=== PATIENT | male | born 1945 | race Caucasian/White ===

== ENCOUNTER 2016-07-27 14:13 | Emergency (ER) | payer OTHER ==
--- NOTE | 2016-07-27 15:38 | ER PHYSICIAN DOCUMENTATION ---
Physician Documentation [facility] Name:Eugene Bronson Age:70 yrs Sex:Male :1945 Arrival Date:07/27/2016 Time:14:13 Bed2 Private MD: Tomas Aguilera Disposition: 07/27 16:00 Chart complete. tl1 Disposition: 07/27/16 15:22 Discharged to Home/Self Care. Impression: Shingles. - Condition is Good. - Discharge Instructions: Valtrex - HERPES ZOSTER. - Prescriptions for gabapentin 300 mg Oral capsule - take 1 capsule by ORAL route 3 times per day; 30 capsule. [place] 5- 325 mg Oral Tablet - take 1 tablet by ORAL route every 6 hours As needed; 20 tablet. Valtrex 1 g Oral Tablet - take 1 tablet by ORAL route every 8 hours for 7 days; 21 tablet. - Medical Reconciliation form form. - Follow up: Private Physician; When: 4- 6 days; Reason: Recheck today's complaints, Continuance of care. - Problem is new. - Symptoms have improved. HPI: 14:58 This 70 yrs old Male presents to ER via Private Vehicle with complaints of tl1 Rash - R SIDE OF BODY. 15:00 The rash is located on the Right S1 dermatome. The rash can be described as vesicular, tl1 Shingles. Onset: The symptom(s)/episode began/occurred gradually, 7 day(s) ago. Associated signs and symptoms: Pertinent positives: burning sensation, Pain. Severity of symptoms: At their worst the symptoms were moderate in the emergency department the symptoms are unchanged. this is worse when he is sitting in the car and he has a long drive back to [place] tomorrow.. Historical: - Home Meds: 1. citalopram oral - PMHx: Asthma; - PSHx: Hip surgery; - Tetanus: unknown. - Ebola Screening: : Patient denies travel to an Ebola-affected area in the 21 days before illness onset. No symptoms or risks identified at this time. . - Immunization history: Flu Vaccine >1 year. - Social history: Smoking status: Patient states was never smoker of tobacco. ROS: 15:00 Skin: Positive for rash. tl1 15:00 All other systems are negative. Exam: 15:00 Constitutional: This is a well developed, well nourished patient who is awake, alert, tl1 and in no acute distress. 15:00 Cardiovascular: Rate: normal. 15:00 Respiratory: Respirations: normal. 15:00 Skin: zoster. Vital Signs: 14:30 BP 146 / 97; Pulse 88; Resp 16; Temp 97.9; Pulse Ox 92% on R/A; Weight 89.81 kg; Height 5 ft. 8 in. (172.72 cm); Pain 8/10; 14:30 Body Mass Index 30.11 (89.81 kg, 172.72 cm) MDM: 14:57 Patient medically screened. tl1 16:00 Differential diagnosis: Shingles. Data reviewed: vital signs, nurses notes, and as a tl1 result, I will discharge patient. Counseling: I had a detailed discussion with the patient and/or guardian regarding: the historical points, exam findings, and any diagnostic results supporting the discharge/admit diagnosis, the need for outpatient follow up, to return to the emergency department if symptoms worsen or persist or if there are any questions or concerns that arise at home. Special discussion: There is a small chance Valtrex will help at this point. Gabapentin may help with the pain, though maybe not immediately. He should take 300 mg today, 300 mg bid tomorrow, and 300 mg TID thereafter. Be careful about possible drowsiness and dizziness while driving.. Dispensed Medications: No medications were administered Signatures: Ca Ponce, DANNIE RN Tomas Anaya MD MD tl1 Trina Little
--- NOTE | 2016-07-27 15:38 | ER NURSING DOCUMENTATION ---
Nurse's Notes [facility] Name:Eugene Bronson Age:70 yrs Sex:Male :1945 Arrival Date:07/27/2016 Time:14:13 Bed2 Private MD: Diagnosis:Shingles Presentation: 07/27 14:21 Acuity: HAKEEM 4 rh 14:27 Presenting complaint: Patient states: RASH SINCE YESTERDAY TO RIGHT HIP TO RIGHT KNEE, lc THINKS ITS SHINGLES. NO VACCINE AND DID HAVE CHICKEN POX A CHILD. Transition of care: patient was not received from another setting of care. Onset: The symptoms/episode began/occurred gradually. Anaphylaxis evaluation, no signs or symptoms of anaphylaxis were noted. Notified ED Physician of patient's arrival and CC. 14:27 Method Of Arrival: Private Vehicle Triage Assessment: 14:35 General: Appears in no apparent distress, Behavior is cooperative. Pain: Complains of lc pain in right leg and buttocks. Derm: Rash noted that is raised, vesicular, RUNS DOWN LEG. Historical: - Home Meds: 1. citalopram oral - PMHx: Asthma; - PSHx: Hip surgery; - Tetanus: unknown. - Ebola Screening: : Patient denies travel to an Ebola-affected area in the 21 days before illness onset. No symptoms or risks identified at this time. . - Immunization history: Flu Vaccine >1 year. - Social history: Smoking status: Patient states was never smoker of tobacco. Screenin:36 Infectious Disease Risk None. Abuse screen: Denies threats or abuse. Denies injuries lc from another. Abuse screen: Denies threats or abuse. Nutritional screening: No deficits noted. Assessment: 14:33 Pain: Complains of pain in right lower back and right gluteus edmundo Pain radiates to lc right hamstring Pain At worst was 8 out of 10 on a pain scale. Quality of pain is described as throbbing. Respiratory: Airway is patent Respiratory effort is even, unlabored, Breath sounds are clear bilaterally. Vital Signs: 14:30 BP 146 / 97; Pulse 88; Resp 16; Temp 97.9; Pulse Ox 92% on R/A; Weight 89.81 kg; Height lc 5 ft. 8 in. (172.72 cm); Pain 8/10; 14:30 Body Mass Index 30.11 (89.81 kg, 172.72 cm) ED Course: 14:15 Patient arrived in ED. ama 14:21 Triage completed. 14:27 Ca Ponce, RN is Primary Nurse. 14:36 Valuables Remains with patient Patient has correct armband on for positive lc identification. Bed in low position. Call light in reach. 14:57 Tomas Anaya MD is Attending Physician. tl1 Administered Medications: No medications were administered Outcome: 15:22 Discharge ordered by . tl1 15:36 Discharged to home ambulatory. 15:36 Condition: stable 15:36 Instructed on discharge instructions, follow up and referral plans. medication usage, Demonstrated understanding of instructions, medications, Prescriptions given X 2. 15:37 Patient left the ED. Signatures: Ca Ponce, DANNIE RN Olivier Tracy, Reg Reg Tomas Betancur MD MD tl1 Kallie Campbell SidneyTrina urban
== END 2016-07-27 15:38 | disposition home or self-care (01) ==
LOC: ER 14:13
DX: B02.9 Zoster without complications (principal)
CPT/HCPCS: 99282